=== PATIENT | female | born 1955 | race African-American/Black ===

== ENCOUNTER 2017-08-23 15:11 | Emergency (ER) | payer OTHER ==
[~2017-08-23] VITALS: Ht 165.1 cm; Wt 88.5 kg
[~2017-08-23 15:11] MED LIST: AMLODIPINE BESY10 MG PO; BENICAR20 MG PO; BP MED PO; CALCIUM 250+D1 EACH PO; HYDROCHLOROTHIA25 MG PO; PROZAC; PROZAC20 MG PO; VITAMIN D1000 INTUN PO
[2017-08-23] MEDS ORDERED: PERCOCET 5/31 TABLET PO (19:41)
[2017-08-23 20:05] VITALS: BP 135/83
== END 2017-08-23 20:11 | disposition home or self-care (01) ==
LOC: EME 15:11
PROC: 0PSHXZZ Reposition Right Radius, External Approach (ICD-10-PCS; principal; 2017-08-23)
DX: S52.531A Colles' fracture of right radius, initial encounter for closed fracture (principal); W07.XXXA Fall from chair, initial encounter
CPT/HCPCS: 73100; 73110; 99281; 99285; J7050; S0020